=== PATIENT | male | born 1980 | race Caucasian/White ===

== ENCOUNTER 2017-11-23 19:31 | Emergency (ER) | payer OTHER ==
[2017-11-23] MEDS ORDERED: Diphtheria,Pertussis(Acell),Tetanus Vaccine 0.5 ML SDV IM ONE (20:22)
[2017-11-23] MEDS ORDERED: Bacitracin Oint 1 GM U/D Packet TOP ONE (20:26)
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
== END 2017-11-23 21:10 | disposition home or self-care (01) ==
LOC: JP.ED 19:31
DX: S00.83XA Contusion of other part of head, initial encounter (principal); S01.01XA Laceration without foreign body of scalp, initial encounter; W22.8XXA Striking against or struck by other objects, initial encounter; Y93.29 Activity, other involving ice and snow
CPT/HCPCS: 90471; 90715; 99283-25